=== PATIENT | male | born 1960 | race Caucasian/White ===

== ENCOUNTER 2017-07-24 22:11 | Emergency (ER) | payer OTHER ==
[2017-07-25] MEDS ORDERED: Diphtheria,Pertussis(Acell),Tetanus Vaccine 0.5 ML SDV IM ONE (00:30)
[2017-07-25] MEDS ORDERED: Tetracaine HCl/PF 0.5% 4 ML Bottle EYERT ONE (00:30)
--- NOTE | 2017-07-25 00:41 | EDM.PDOC ---
ED HPI GENERAL MEDICAL PROBLEM - General Chief Complaint: Eye Problems Stated Complaint: SOMETHING IN EYE Time Seen by Provider: 07/25/17 00:25 Source of Information: Reports: Patient History Limitations: Reports: No Limitations - History of Present Illness INITIAL COMMENTS - FREE TEXT/NARRATIVE: 56 yo male had some brush sweep across his R eye earlier today. Has tearing, blurring, pain, and photophobia since. Tetanus is not UTD. 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) (none) Right Eye Pain Score (Numeric/FACES): 5 - Related Data Allergies Allergy/AdvReac Type Severity Reaction Status Date / Time No Known Allergies Allergy Verified 07/24/17 23:12 Home Meds: Home Meds Ibuprofen [Advil] 400 mg PO ASDIRECTED 07/24/17 [History] Past Medical History HEENT History: Reports: Other (See Below) Other HEENT History: right eye injury, drill bit in right eye Musculoskeletal History: Reports: Fracture - Infectious Disease History Infectious Disease History: Reports: Chicken Pox - Past Surgical History HEENT Surgical History: Reports: Other (See Below) Other HEENT Surgeries/Procedures: right eye Social & Family History - Tobacco Use Smoking Status *Q: Never Smoker Second Hand Smoke Exposure: No - Caffeine Use Caffeine Use: Reports: Coffee - Recreational Drug Use Recreational Drug Use: No ED ROS GENERAL - Review of Systems Review Of Systems: See Below Constitutional: Reports: No Symptoms HEENT: Reports: Eye Pain, Vision Change (blurring) Respiratory: Reports: No Symptoms Cardiovascular: Reports: No Symptoms Skin: Reports: No Symptoms Neurological: Reports: No Symptoms ED EXAM GENERAL W FULL EYE - Physical Exam Exam: See Below Exam Limited By: No Limitations General Appearance: Alert, WD/WN, No Apparent Distress Eye Exam: Right Eye: Conjunctival Injection, Corneal Abrasion, Bilateral Eye: EOMI, PERRL Eyelids: Bilateral: Normal Appearance Conjunctiva & Sclera: Right: Injected Cornea Exam: Right: Corneal Abrasion Extraocular Movements: Bilateral: Intact Pupils: Normal Accommodation Pupillary Size: Bilateral: 3 mm Ears: Normal External Exam, Normal Canal, Hearing Grossly Normal Nose: Normal Inspection, Normal Mucosa, No Blood Throat/Mouth: Normal Inspection, Normal Lips, Normal Oropharynx, Normal Voice Neck: Normal Inspection Respiratory/Chest: No Respiratory Distress Cardiovascular: Regular Rate, Rhythm Course - Vital Signs Text/Narrative:: Eye examined after tetracaine. Fluorescein stain instilled. Black light reveals assorted small corneal abrasions in that R eye. Last Recorded V/S: Last Vital Signs Temp 36.0 C 07/24/17 23:14 Pulse 77 07/24/17 23:14 Resp 16 07/24/17 23:14 BP 122/69 07/24/17 23:14 Pulse Ox 96 07/24/17 23:14 - Orders/Labs/Meds Orders: Active Orders 24 hr Category Date Time Status Vaccines to be Administered [RC] PER UNIT ROUTINE Care 07/25/17 00:30 Ordered Diphth,Pertuss(Acell),Tet Vac [Adacel] Med 07/25/17 00:30 Once 0.5 ml IM .ONCE ONE Tetracaine HCl/PF [Tetracaine 0.5% Steri-Unit Sravanthi] Med 07/25/17 00:30 Once 1 ml EYERT ASDIRECTED ONE Departure - Departure Time of Disposition: 01:00 Disposition: Home, Self-Care 01 Condition: Good Clinical Impression: Corneal abrasion Qualifiers: Encounter type: initial encounter Laterality: right Qualified Code(s): S05.01XA - Injury of conjunctiva and corneal abrasion without foreign body, right eye, initial encounter - Discharge Information Referrals: PCP,None [Primary Care Provider] - - My Orders Last 24 Hours: My Active Orders 07/25/17 00:30 Vaccines to be Administered [RC] PER UNIT ROUTINE Diphth,Pertuss(Acell),Tet Vac [Adacel] 0.5 ml IM .ONCE ONE Tetracaine HCl/PF [Tetracaine 0.5% Steri-Unit Sravanthi] 1 ml EYERT ASDIRECTED ONE - Assessment/Plan Last 24 Hours: My Active Orders 07/25/17 00:30 Vaccines to be Administered [RC] PER UNIT ROUTINE Diphth,Pertuss(Acell),Tet Vac [Adacel] 0.5 ml IM .ONCE ONE Tetracaine HCl/PF [Tetracaine 0.5% Steri-Unit Sravanthi] 1 ml EYERT ASDIRECTED ONE
== END 2017-07-25 01:04 | disposition home or self-care (01) ==
LOC: JP.ED 22:11
DX: S05.01XA Injury of conjunctiva and corneal abrasion without foreign body, right eye, initial encounter (principal); W45.8XXA Other foreign body or object entering through skin, initial encounter; Z23 Encounter for immunization
CPT/HCPCS: 90471; 90715; 99283; A9270